=== PATIENT | female | born 1960 | race Caucasian/White ===

== ENCOUNTER → 2019-02-11 | Day surgery (SDC) | payer BC ==
[~2019-02-11] MED LIST: BACLOFEN10 MG PO; BENTYL10 MG PO; COLESTIPOL PO; EPHEDRINE SULFATE INJ 50 MG/10 ML SYR ONE; FENOFIBRATE145 MG PO; FENTANYL CITRATE/PF 100MCG/2 ML INJ ONE; HYOSCYAMINE SULFATE 0.5 MG/ML INJ ONE; LANSOPRAZOLE PO; LOSARTAN-HCTZ1 EAC1 PO; MIDAZOLAM HCL 2 MG/2 ML VIAL ONE; MONTELUKAST SOD10 MG PO; NAPROXEN250 MG PO; NORCO 7.5-3251 EACH PO; PREVACID30 MG PO; PROPOFOL IV EMULSION 10 MG/ML 20 ML VIAL ONE; PROPOFOL IV EMULSION 10 MG/ML 50 ML VIAL ONE; SOMA350 MG PO; Z.0.BYSTOLIC10 MG PO; Z.0.DIOVAN HCT 3201 PO; Z.0.FLAGYL250 MG PO; Z.0.FLEXERIL10 MG PO; Z.0.GABAPENTIN300 MG PO; Z.0.LEVAQUIN500 MG PO; Z.0.NORCO 5-325 TA1 PO; [UNRECOGNIZED DRUG - OTHER] PO
--- OUTSIDE RECORDS SUMMARY | 2019-02-11 09:24 | XMS REPORT ---
Author Author [facility] Address Unknown Phone Unavailable Care Team Providers Care Dock Associate Name Role Phone Unavailable Unavailable Problems This patient has no known problems. Allergies, Adverse Reactions, Alerts This patient has no known allergies or adverse reactions. Medications This patient has no known medications. Results Test Description Test Time Test Comments Text Results Atomic Results Result Comments BREAST ULTRASOUND BILATERAL 2019-01-04 09:06:08 - DIAG MAMM BILATERAL BRYAN CAD DIGITAL W/AUGMENTATIONBILATERAL DIGITAL DIAGNOSTIC MAMMOGRAM 3D/2D WITH CAD WITH AUGMENTATION: 01/04/2019CLINICAL: Implant abnormality. Digital breast tomosynthesis was performed in addition to routine CC and MLO views. Current mammographic images were evaluated by either a [employer] M-Vu or a [employer]er CAD (computer aided detection system). Comparison is made to exams dated 07/27/2018 mammogram, 10/01/2016 mammogram, and 07/14/2015 [facility]ogram - [facility]. The tissue of both breasts is heterogeneously dense. This may lower the sensitivity of mammography. Bilateral implants in place. No suspicious mass, architectural distortion, malignant type calcification, or lymph node abnormality detected. INCOMPLETE ASSESSMENT: ADDITIONAL IMAGING ALBERT LUATION RECOMMENDEDUltrasound pending for additional evaluation. There is no mammographic evidence of malignancy. - BREAST ULTRASOUND BILATERALULTRASOUND OF BOTH BREASTS AND BOTH AXILLA: 01/04/2019Comparison is made to exams dated 07/27/2018 mammogram, 10/01/2016 mammogram, and 07/14/2015 mammogram - [facility]. Real-time ultrasound of both breasts and both axilla was performed. There is a benign 7 mm nodule in the right breast at 9 o'clock, 5 cm from the nipple. Color flow imaging demonstrates that there is no increase in vascularity. No abnormalities were seen sonographically in the left breast or either axilla. Bilateral implants intact. Clinical breast exam unremarkable. IMPRESSION: BENIGN There is no sonographic evidence of malignancy. Patient has been informed that she has areas of dense breast tissue that could make it difficult to find a small cancer. A screening mammogram and supplemental ultrasound for dense breast tissue is recommended in 1 year.Linda Nicholson M.D. dm/:01/04/2019 09:06:08 Polystyrene Molding Machine Tender: Maria D SHARMA, [facility] BIRADS 1-2 Combo FU Letter Mammogram BI-RADS: 0 Indeterminate Ultrasound BI-RADS: 2 Benign DIAG MAMM BILATERAL BRYAN CAD DIGITAL W/AUGMENTATION 2019-01-04 09:06:08 - DIAG MAMM BILATERAL BRYAN CAD DIGITAL W/AUGMENTATIONBILATERAL DIGITAL DIAGNOSTIC MAMMOGRAM 3D/2D WITH CAD WITH AUGMENTATION: 01/04/2019CLINICAL: Implant abnormality. Digital breast tomosynthesis was performed in addition to routine CC and MLO views. Current mammographic images were evaluated by either a [employer] M-Vu or a [employer] CAD (computer aided detection system). Comparison is made to exams dated 07/27/2018 mammogram, 10/01/2016 mammogram, and [facility]. The tissue of both breasts is heterogeneously dense. This may lower the sensitivity of mammography. Bilateral implants in place. No suspicious mass, architectural distortion, malignant type calcification, or lymph node abnormality detected. INCOMPLETE ASSESSMENT: ADDITIONAL IMAGING EVALUATION RECOMMENDEDUltrasound pending for additional evaluation. There is no mammographic evidence of malignancy. - BREAST ULTRASOUND BILATERALULTRASOUND OF BOTH BREASTS AND BOTH AXILLA: 01/04/2019Comparison is made to exams dated 07/27/2018 mammogram, 10/01/2016 mammogram, and [facility]. Real-time ultrasound of both breasts and both axilla was performed. There is a benign 7 mm nodule in the right breast at 9 o'clock, 5 cm from the nipple. Color flow imaging demonstrates that there is no increase in vascularity. No abnormalities were seen sonographically in the left breast or either axilla. Bilateral implants intact. Clinical breast exam unremarkable. IMPRESSION: BENIGN There is no sonographic evidence of malignancy. Patient has been informed that she has areas of dense breast tissue that could make it difficult to find a small cancer. A screening mammogram and supplemental ultrasound for dense breast tissue is recommended in 1 year.Linda Nicholson M.D. dm/:01/04/2019 09:06:08 Polystyrene Molding Machine Tender: Maria D SHARMA, [facility] sent: BIRADS 1-2 Combo FU Letter Mammogram BI-RADS: 0 Indeterminate Ultrasound BI-RADS: 2 Benign
[2019-02-11 16:07] LABS: WBC,FECAL (FECAL LACTOFERRIN) NEGATIVE (NEGATIVE)
--- NOTE | 2019-02-11 21:55 | Operative Report ---
DATE OF PROCEDURE: 02/11/2019 SURGEON: Joaquín Collins MD PROCEDURE: EGD with biopsies and a colonoscopy with polypectomy and biopsies. INDICATIONS FOR EGD: Dyspepsia. INDICATIONS FOR COLONOSCOPY: Surveillance colonoscopy, personal history of colon polyps, history of IBD, and diarrhea. MEDICATIONS: The patient was done under MAC, please see anesthesiologist's note. PROCEDURE IN DETAIL: With the patient in left lateral decubitus position, a flexible fiberoptic Olympus gastroscope was introduced into the esophagus under direct visualization without any difficulty. There was some patchy erythema noted in distal esophagus. The scope was then advanced with ease into the stomach and mucosa overlying the antrum and the body revealed some patchy erythema and low-grade to moderate edema and biopsies were obtained, sent to stain for H pylori. Several hyperplastic-appearing polyps were noted in the body of the stomach and somewhat partially excised with a cold biopsy forceps. Rugal folds in the proximal body were somewhat prominent and those were biopsied. The pylorus was of normal contour and shape, it was intubated with ease and the scope was advanced all the way to the second portion of the duodenum. Biopsies were obtained from the proximal second portion and a duodenal bulb to rule out sprue. The scope was then withdrawn back into the stomach and retroflexed. Mucosa overlying the fundus and cardia appeared to be within normal limits. The scope was then straightened out, it was subsequently withdrawn. The patient tolerated the procedure well. IMPRESSION: 1. Distal esophagitis, mild. 2. Gastritis, biopsied. Biopsies sent to stain for H pylori. 3. Prominent gastric folds upper body, biopsied. 4. Gastric polyps, hyperplastic appearing, body, some partially excised with the cold biopsy forceps. 5. Rule out sprue. PLAN: Follow up histology. Initiate Protonix 40 mg one p.o. q.a.m. a.c. The patient was then turned around after adequate lubrication of the anal canal, a flexible fiberoptic Olympus colonoscope was inserted into the rectum with ease and advanced all the way to the cecum. Mucosa overlying the cecum appeared to be within normal limits. The ileocecal valve was intubated and the scope was advanced into the terminal ileum. Biopsies were obtained. The scope was then withdrawn back into the colon, it was then withdrawn slowly. Mucosa overlying the ascending and the transverse appeared to be within normal limits. There was some mild patchy inflammatory changes noted in the left colon. Random biopsies were obtained. Some diverticular disease was noted in the sigmoid and the distal descending. Two polyps were removed per hot biopsy forceps from the rectum. The scope was then retroflexed into the distal rectum and small internal hemorrhoids were noted, none of which was actively bleeding. The scope was then straightened out, it was subsequently withdrawn after securing an adequate stool specimen that was sent for the appropriate stool studies. The patient tolerated the procedure well. IMPRESSION: 1. Mild patchy left-sided colitis. 2. Diverticulosis. 3. Proctitis, mild biopsies obtained. 4. Rectal polyps x2 hot biopsied. 5. Internal hemorrhoids, none actively bleeding. PLAN: Follow up histology. Follow up stool studies. Increase Bentyl to 20 mg one p.o. q.i.d. Initiate Questran 1 packet p.o. b.i.d. The patient might benefit from a followup colonoscopy in 3 to 5 years. MD SHERMAN Olvera/RUIZ /[id number] cc: Timi Carlson DO
[2019-02-12 15:12] LABS: C DIFFICILE TOXIN A&B AMP PROB NEGATIVE (NEGATIVE)
== END | disposition home or self-care (01) ==
LOC: OR 09:20
PROVIDERS: ATTEND Internal Medicine Gastroenterology
DX: K51.50 Left sided colitis without complications (principal); K31.7 Polyp of stomach and duodenum; K62.1 Rectal polyp; K29.70 Gastritis, unspecified, without bleeding; K63.89 Other specified diseases of intestine; K20.9 Esophagitis, unspecified; K21.9 Gastro-esophageal reflux disease without esophagitis; K31.89 Other diseases of stomach and duodenum; K57.30 Diverticulosis of large intestine without perforation or abscess without bleeding; K62.89 Other specified diseases of anus and rectum; K64.8 Other hemorrhoids; J41.0 Simple chronic bronchitis; I10 Essential (primary) hypertension; E78.5 Hyperlipidemia, unspecified; R01.1 Cardiac murmur, unspecified; F41.9 Anxiety disorder, unspecified; F17.210 Nicotine dependence, cigarettes, uncomplicated; Z88.7 Allergy status to serum and vaccine; Z88.1 Allergy status to other antibiotic agents; Z91.041 Radiographic dye allergy status; Z01.810 Encounter for preprocedural cardiovascular examination; Z80.0 Family history of malignant neoplasm of digestive organs
CPT/HCPCS: 36415; 43239; 45380; 45384; 83630; 83993; 85651; 86140; 86256; 86671; 87045; 87177; 87328; 87493; 93005; J1980; J2250; J2704 ×2; 45378

== ENCOUNTER → 2019-03-04 | Outpatient (CLI) | payer BC ==
[~2019-03-04] MED LIST changes: -EPHEDRINE SULFATE INJ 50 MG/10 ML SYR ONE; -FENTANYL CITRATE/PF 100MCG/2 ML INJ ONE; -HYOSCYAMINE SULFATE 0.5 MG/ML INJ ONE; -MIDAZOLAM HCL 2 MG/2 ML VIAL ONE; -PROPOFOL IV EMULSION 10 MG/ML 20 ML VIAL ONE; -PROPOFOL IV EMULSION 10 MG/ML 50 ML VIAL ONE
== END ==
LOC: DX 07:38
PROVIDERS: ATTEND Internal Medicine Gastroenterology
DX: R19.7 Diarrhea, unspecified (principal)
CPT/HCPCS: 74250

== ENCOUNTER → 2020-06-28 | Outpatient (CLI) | payer BC | LOC: RESP 13:55 | PROVIDERS: ATTEND Internal Medicine | DX: J44.9 Chronic obstructive pulmonary disease, unspecified (principal); F17.210 Nicotine dependence, cigarettes, uncomplicated | CPT/HCPCS: 94060; 94664; 94727; 94729 ==

== ENCOUNTER → 2024-09-20 | Outpatient (REF) | payer BC | LOC: US 09:09 | PROVIDERS: ATTEND Family Medicine | DX: E04.1 Nontoxic single thyroid nodule (principal) | CPT/HCPCS: 10005; 88172; 88173; 88305 ==